=== PATIENT | female | born 1995 | race American Indian/Alaskan Native ===

== ENCOUNTER 2018-05-19 08:35 | Emergency (ER) | payer SELFPAY ==
[2018-05-19] MEDS ORDERED: NACL 0.9% 1000 ML 1,000 ML IV ONE (08:55)
[2018-05-19 09:39] LABS: Bacteria,Urine 1+ /HPF (Negative); Bilirubin,Urine NEG (Negative); Blood,Urine NEG (Negative); Color,Urine Yellow (Yellow); Mucus,Urine 1+ /HPF
[2018-05-19 09:46] LABS: HCG Qualitative,Urine Negative (Negative)
--- NOTE | 2018-05-19 10:06 | Emergency Department Report ---
Blank Doc - Documentation Documentation: 22-year-old female 4 months presents to the hospital complaining of bilateral lower abdominal pain 2 weeks. Pain is intermittent, cramping, worse palpation. Brown vaginal discharge last week that has since resolved. Complains of constipation with last bowel movement 3 days ago and watery at that time. Denies use of laxatives. Denies history of abdominal surgeries. Complains of rectal pain and possible hemorrhoids with defecation. Patient is sexually active with regular partner no condom use. History of Trichomonas several years ago. UA with white cells and leukocyte esterase negative Pending: Labs, Abdominal x-ray, pelvic exam, rectal exam, repeat vitals Mid-level to evaluate
--- NOTE | 2018-05-19 10:24 | XRay Report ---
Flat and upright abdomen: History: Lower abdominal pain, constipation. Findings: No free intraperitoneal air. No bowel distention or wall thickening. Minimal stool in colon. No radiopaque calculus or abnormal calcification. Impression: Essentially negative abdomen.
[2018-05-19 10:43] LABS: Basophils % (Auto) 0.7 % (0.0-1.8); Eosinophils # (Auto) 0.1 K/mm3 (0.0-0.4); Eosinophils % (Auto) 1.8 % (0.0-4.3); Hematocrit 37.9 % (30.3-42.9); Hemoglobin 12.7 gm/dl (10.1-14.3); Lymphocytes # (Auto) 1.5 K/mm3 (1.2-5.4); Lymphocytes % (Auto) 23.4 % (13.4-35.0); Mean Corpuscular HGB Conc 34 % (30-34); Mean Corpuscular Hemoglobin 30 pg (28-32); Mean Corpuscular Volume 89 fl (79-97); Monocytes # (Auto) 0.3 K/mm3 (0.0-0.8); Monocytes % (Auto) 4.7 % (0.0-7.3); Platelet Count 182 K/mm3 (140-440); Red Blood Count 4.29 M/mm3 (3.65-5.03); Red Cell Distribution Width 14.4 % (13.2-15.2)
[2018-05-19 10:55] LABS: Alanine Aminotransferase 9 units/L (7-56); Albumin 4.1 g/dL (3.9-5); BUN/Creatinine Ratio 19; Blood Urea Nitrogen 13 mg/dL (7-17); Calcium 9.5 mg/dL (8.4-10.2); Hemolysis Index 1
--- NOTE | 2018-05-19 11:44 | Emergency Department Report ---
ED Abdominal Pain HPI - General Chief Complaint: Abdominal Pain Stated Complaint: LOWER ABD PAIN FOR 2 WKS Time Seen by Provider: 05/19/18 09:40 Source: patient Mode of arrival: Ambulatory Limitations: No Limitations - History of Present Illness Initial Comments: 22-year-old -[place] female presents with bilateral lower abdominal pain for 2 weeks. Patient is 4 months , A, LMP 04/14/2018. She reports pain as cramping and intermittent to bilateral lower abdomen. She is also having pain with bowel movements, that she believes is related to hemorrhoids. Patient admits to history of hemorrhoids one . She had Brown vaginal discharge last week that has since resolved. Complains of constipation with last bowel movement 3 days ago and watery at that time. Denies use of laxatives. Denies history of abdominal surgeries. Complains of rectal pain and possible hemorrhoids with defecation. Patient is sexually active with regular partner no condom use. History of Trichomonas several years ago. MD Complaint: abdominal pain (bilateral lower quadrant) Onset/Timin -: week(s) Location: LLQ, RLQ Radiation: none Migration to: no migration Severity: moderate Severity scale (0 -10): 6 Quality: cramping Consistency: intermittent Improves With: nothing Worsens With: other (palpation) Associated Symptoms: constipation. denies: nausea, vomiting, diarrhea, fever, chills, dysuria, hematemesis, hematochezia, melena, hematuria, anorexia, syncope - Related Data LMP Date: 04/14/18 Previous Rx's Medication Instructions Recorded Last Taken Type Fluconazole [Diflucan TAB] 150 mg PO ONCE #1 tablet 05/19/18 Unknown Rx Polyethylene Glycol 3350 [Miralax 17 gm PO BID #14 packet 05/19/18 Unknown Rx 3350] metroNIDAZOLE [Flagyl] 500 mg PO Q12HR 7 Days #14 tab 05/19/18 Unknown Rx Allergies Allergy/AdvReac Type Severity Reaction Status Date / Time No Known Allergies Allergy Verified 05/19/18 09:41 ED Review of Systems ROS: Stated complaint: LOWER ABD PAIN FOR 2 WKS Other details as noted in HPI Constitutional: denies: chills, fever Respiratory: denies: cough, shortness of breath, wheezing Cardiovascular: denies: chest pain, palpitations Gastrointestinal: abdominal pain (bilateral lower abdominal pain), constipation. denies: nausea, vomiting, diarrhea, hematemesis, melena, hematochezia Genitourinary: denies: urgency, dysuria, frequency, hematuria, discharge, abnormal menses, dyspareunia Musculoskeletal: denies: back pain, joint swelling, arthralgia Neurological: denies: headache, weakness, paresthesias Psychiatric: denies: anxiety, depression ED Past Medical Hx - Past Medical History Previous Medical History?: No - Surgical History Past Surgical History?: No - Social History Smoking Status: Never Smoker Substance Use Type: Marijuana - Medications Home Medications: Home Medications Medication Instructions Recorded Confirmed Last Taken Type Fluconazole [Diflucan TAB] 150 mg PO ONCE #1 tablet 05/19/18 Unknown Rx Polyethylene Glycol 3350 [Miralax 17 gm PO BID #14 packet 05/19/18 Unknown Rx 3350] metroNIDAZOLE [Flagyl] 500 mg PO Q12HR 7 Days #14 tab 05/19/18 Unknown Rx ED Physical Exam - General Limitations: No Limitations General appearance: alert, in no apparent distress - Respiratory Respiratory exam: Present: normal lung sounds bilaterally. Absent: respiratory distress - Cardiovascular Cardiovascular Exam: Present: regular rate, normal rhythm. Absent: systolic murmur, diastolic murmur, rubs, gallop - GI/Abdominal GI/Abdominal exam: Present: soft, tenderness (right lower quadrant and left lower quadrant tenderness), normal bowel sounds. Absent: distended, guarding, rebound, rigid, organomegaly, mass - External exam: Present: normal external exam Speculum exam: Present: erythema, vaginal discharge. Absent: cervical discharge , vaginal bleeding, foreign body, tissue, laceration Bi-manual exam: Present: normal bi-manual exam - Neurological Exam Neurological exam: Present: alert, oriented X3 - Psychiatric Psychiatric exam: Present: normal affect, normal mood - Skin Skin exam: Present: warm, dry, intact, normal color. Absent: rash ED Course Vital Signs 05/19/18 05/19/18 08:51 12:19 Temperature 98.7 F Pulse Rate 104 H 83 Respiratory 16 16 Rate Blood Pressure 147/97 Blood Pressure 128/73 [Left] O2 Sat by Pulse 97 99 Oximetry ED Medical Decision Making - Lab Data Result diagrams: 05/19/18 10:17 05/19/18 10:17 - Radiology Data Radiology results: report reviewed Flat and upright abdomen: History: Lower abdominal pain, constipation. Findings: No free intraperitoneal air. No bowel distention or wall thickening. Minimal stool in colon. No radiopaque calculus or abnormal calcification. Impression: Essentially negative abdomen. - Medical Decision Making This is a 22-year-old -[place] female who presents with left quadrant pain and vaginal discharge for 2 weeks. Patient was examined by me and Dr. Quick. Vitals are stable and in no acute distress. Obtained CMP, CBC, urinalysis, urine hCG, and wet prep and GC via pelvic exam. Patient was slightly tachycardic on arrival heart rate returned to normal 83 or reevaluation. Positive yeast and clue cells on wet prep, WBC's elevated on urinalysis, and all other labs are remarkable. Start metronidazole 500 mg by mouth twice a day 7 days and Diflucan 150 mg by mouth once. Discharged home in stable condition. Discussed prevention options. F/U with PCP or Health Department. Critical care attestation.: If time is entered above; I have spent that time in minutes in the direct care of this critically ill patient, excluding procedure time. ED Disposition Clinical Impression: Vaginal discharge, Vaginal candidiasis, Bacterial vaginitis, Abdominal cramping Constipation Qualifiers: Constipation type: slow transit constipation Qualified Code(s): K59.01 - Slow transit constipation Disposition: DC-01 TO HOME OR SELFCARE Is pt being admited?: No Does the pt Need Aspirin: No Condition: Stable Instructions: Abdominal Pain (ED), Bacterial Vaginosis (ED), Vulvovaginal Candidiasis (ED) Additional Instructions: Avoid drinking alcohol while taking antibiotics and for 24 hours after completion. Continue safe sexual intercourse. Follow up with Primary Care Provider or health department. Prescriptions: Fluconazole [Diflucan TAB] 150 mg PO ONCE #1 tablet metroNIDAZOLE [Flagyl] 500 mg PO Q12HR 7 Days #14 tab Polyethylene Glycol 3350 [Miralax 3350] 17 gm PO BID #14 packet Referrals: [facility] [Outside] - 3-5 Days [facility] [Outside] - 3-5 Days [facility] [Outside] - 3-5 Days Forms: STI Treatment and Prevention Time of Disposition: 12:43 Print Language: BAHRAINI
[2018-05-19 12:20] VITALS: BP 128/73
== END 2018-05-19 13:30 | disposition home or self-care (01) ==
LOC: ED 08:35
DX: B37.3 Candidiasis of vulva and vagina (principal); B96.89 Other specified bacterial agents as the cause of diseases classified elsewhere; N76.0 Acute vaginitis; F12.10 Cannabis abuse, uncomplicated; K59.01 Slow transit constipation
CPT/HCPCS: 36415; 74019; 80053; 81001; 81025; 85025; 87210; 87591